=== PATIENT | female | born 1945 | race Caucasian/White ===

== ENCOUNTER 2019-03-27 09:42 | Outpatient (CLI) | payer MEDICARE ==
--- NOTE | 2019-03-27 10:40 | BD ---
EXAM: DEXA bone density examination HISTORY: 74-year-old postmenopausal female for screening COMPARISON: None FINDINGS: L1--bone mineral density 0.921 g/sq cm; T score -0.6 L2--bone mineral density 0.874 g/sq cm; T score -1.4 L3--bone mineral density 0.850 g/sq cm; T score -2.1 L4--bone mineral density 0.932 g/sq cm; T score -1.2 Total L1-L4--bone mineral density 0.890 g/sq cm; T score -1.4 Left femoral neck--bone mineral density0.553; T score -2.7 Total proximal left femur--bone mineral density 0.701; T score -2.0 IMPRESSION: Osteoporosis
== END 2019-03-27 09:43 | disposition home or self-care (01) ==
LOC: BICMAMMO 09:42
PROVIDERS: ATTEND Family Medicine
DX: Z13.820 Encounter for screening for osteoporosis (principal); M81.0 Age-related osteoporosis without current pathological fracture; Z78.0 Asymptomatic menopausal state
CPT/HCPCS: 77080

== ENCOUNTER 2020-05-02 10:29 | Outpatient (CLI) | payer MEDICARE | END 2020-05-02 10:30 | disposition home or self-care (01) | LOC: BICRAD 10:29 | PROVIDERS: ATTEND Internal Medicine Rheumatology | DX: M54.5 Low back pain (principal); M43.16 Spondylolisthesis, lumbar region; M43.17 Spondylolisthesis, lumbosacral region | CPT/HCPCS: 72100 ==

== ENCOUNTER 2020-12-10 15:20 | Outpatient (CLI) | payer MEDICARE ==
[2020-12-10 16:23] LABS: Hemoglobin 12.9 g/dL (12.0-15.5); Mean Corpuscular HGB CONC 32.8 g/dL (32.0-36.0); Mean Corpuscular Hemoglobin 29.9 pg (27.0-33.0); Mean Corpuscular Volume 91.2 fl (81.6-98.3); Mean Platelet Volume 11.3 fl (7.4-10.4); Platelet Count 262 10x3/uL (150-450); RBC Distribution Width 12.9 % (11.5-14.5); Red Blood Cell (RBC) Count 4.31 10x6/uL (3.90-5.03); White Blood Cell (WBC) Count 6.5 10x3/uL (3.5-10.5)
[2020-12-10 16:47] LABS: INR-International Normal Ratio 0.9; PTT 24.8 sec (22.0-33.0); Prothrombin Time 10.2 sec (9.5-12.1)
[2020-12-11 00:51] LABS: SARS-CoV-2 PCR by NAA Not Detected (NotDetected)
== END 2020-12-10 15:21 | disposition home or self-care (01) ==
LOC: LABBT 15:20
PROVIDERS: ATTEND Neurological Surgery
DX: Z01.812 Encounter for preprocedural laboratory examination (principal); M48.061 Spinal stenosis, lumbar region without neurogenic claudication; M43.16 Spondylolisthesis, lumbar region; Z20.822 Contact with and (suspected) exposure to COVID-19
CPT/HCPCS: 85027; 85610; 85730; U0003; U0005

== ENCOUNTER 2020-12-13 05:51 | Inpatient (IN) | payer MEDICARE ==
[2020-12-13] MEDS ORDERED: Alendronate Sodium 70 mg Tablet PO SCH (06:00)
[2020-12-13] MEDS ORDERED: Bupivacaine PF 0.5% 30 ML VIAL ONE (06:10)
[2020-12-13] MEDS ORDERED: Thrombin 5000 UNITS/5 ML VIAL ONE ×2 (06:10→07:26)
[2020-12-13] MEDS ORDERED: EPINEPHrine 1 MG/ML AMP ONE (06:10)
[2020-12-13] MEDS ORDERED: Neomycin-Polymyxin 1 ML AMP ONE ×2 (06:10→12:39)
[2020-12-13] MEDS ORDERED: ceFAZolin 2 GM/DEX 5% 100 ML BAG ONE (06:28)
[2020-12-13] MEDS ORDERED: Albumin 5% 500 ML ONE (06:33)
[2020-12-13] MEDS ORDERED: Fentanyl 250 MCG/5 ML VIAL ONE (06:33)
[2020-12-13] MEDS ORDERED: diphenhydrAMINE 25 MG CAP PO PRN (06:38)
[2020-12-13] MEDS ORDERED: Ondansetron PF 4 MG/2 ML Vial IVP PRN (06:38)
[2020-12-13] MEDS ORDERED: Promethazine HCl 12.5 MG SUPP PR PRN (06:38)
[2020-12-13] MEDS ORDERED: Promethazine 25 MG TAB PO PRN (06:38)
[2020-12-13] MEDS ORDERED: HYDROcodone/Acetaminophen 7.5/325 mg Tablet PO PRN (06:38)
[2020-12-13] MEDS ORDERED: Morphine 2 MG/ML VIAL SLOW IVP PRN (06:38)
[2020-12-13] MEDS ORDERED: Acetaminophen/Codeine 30-300mg Tablet PO PRN (06:38)
[2020-12-13] MEDS ORDERED: Acetaminophen 325 MG TAB PO PRN (06:38)
[2020-12-13] MEDS ORDERED: Milk Of Magnesia 30 ML UDCUP PO PRN (06:38)
[2020-12-13] MEDS ORDERED: Clindamycin/D5W 900 mg/50 ml Premix Bag ONE (06:45)
[2020-12-13] MEDS ORDERED: Levofloxacin 500 mg/D5W 100 ml Premix Bag ONE (06:45)
[2020-12-13] MEDS ORDERED: Ketamine 50 MG/ML (10ML VIAL) ONE (07:15)
[2020-12-13] MEDS ORDERED: Famotidine/PF 20 mg/2ml Vial ONE (07:15)
[2020-12-13] MEDS ORDERED: Rocuronium Bromide 10 MG/ML (10ML VIAL) ONE (07:26)
[2020-12-13] MEDS ORDERED: PROPOFOL 200 MG/20 ML VIAL ONE (07:26)
[2020-12-13] MEDS ORDERED: PHENYLEPHRINE-NS 100 MCG/ML 10 ML SYRINGE ONE ×2 (07:26→13:44)
[2020-12-13] MEDS ORDERED: Dexamethasone 20 MG/5 ML VIAL ONE (07:26)
[2020-12-13] MEDS ORDERED: Ondansetron PF 4 MG/2 ML Vial ONE (07:26)
[2020-12-13] MEDS ORDERED: Lidocaine 1% PF 5 ML VIAL ONE (07:26)
[2020-12-13] MEDS ORDERED: Non-Formulary Item 1 EACH (Folic Acid [Folic Acid] 0.4 MG Tablet) PO SCH (09:00)
[2020-12-13] MEDS ORDERED: ATOMOXETINE HCL 80 MG PO SCH (09:00)
[2020-12-13] MEDS ORDERED: Phenylephrine 10 MG/ML VIAL ONE (11:32)
[2020-12-13] MEDS ORDERED: SUGAMMADEX SODIUM 200 MG/2 ML VIAL ONE (13:04)
[2020-12-13] MEDS ORDERED: Fentanyl 100 MCG/2 ML VIAL ONE (13:55)
[2020-12-13] MEDS ORDERED: PACU-Morphine 4MG/ML VIAL SLOW IVP PRN (13:55)
[2020-12-13] MEDS ORDERED: Promethazine HCl 25 MG/ML VIAL IM PRN (13:55)
[2020-12-13] MEDS ORDERED: Morphine Sulfate 2 MG/ML SYRINGE SLOW IVP PRN (13:55)
[2020-12-13] MEDS ORDERED: Promethazine HCl 25 MG/ML VIAL IVPB PRN (13:55)
[2020-12-13] MEDS ORDERED: HYDROmorphone 2 MG/ML VIAL SLOW IVP PRN (13:55)
[2020-12-13] MEDS ORDERED: Ondansetron HCl/PF 4 MG/2 ML Vial IVP PRN (13:55)
[2020-12-13] MEDS ORDERED: Calcium Chloride 1 GM/10 ML Abboject SYRINGE ONE (14:11)
[2020-12-13] MEDS: clonazePAM 1 MG TAB PO SCH (17:06)
[2020-12-13] MEDS: Folic Acid 1 MG TAB PO SCH (17:06)
[2020-12-13] MEDS: Sodium Chloride 0.9% 1,000 ML IV SCH ×2 (17:06→20:20)
[2020-12-13] MEDS: Clindamycin/D5W 900 MG in Premix Bag 1 BAG IVPB SCH ×2 (17:06→21:58)
[2020-12-13] MEDS: Morphine 4 MG/ML VIAL SLOW IVP PRN (18:35)
[2020-12-13 19:34] VITALS: BMI 27.1
[2020-12-13] MEDS: HYDROcodone/Acetaminophen 10/325 mg Tablet PO PRN (20:21)
[2020-12-13] MEDS: Magnesium Oxide 400 MG TAB PO SCH (20:21)
[2020-12-13] MEDS: tiZANidine HCl 4 MG TAB PO PRN (20:22)
[2020-12-13] MEDS ORDERED: Non-Formulary Item 1 EACH (Magnesium Oxide [Magnesium] 400 MG Capsule) PO SCH (21:00)
[2020-12-14 03:46] LABS: #Lymphocytes 0.9 thou/uL (1.20-3.40); #Neutrophils 11.5 thou/uL (1.40-6.50); %Basophils 0.1 % (0.0-1.0); %Eosinophils 0.2 % (0.0-10.0); %Lymphocytes 6.8 % (21.0-51.0); %Monocytes 7.5 % (0.0-10.0); %Neutrophils 85.4 % (42.0-75.0); Hemoglobin 8.8 g/dL (12.0-16.0); Mean Corpuscular HGB CONC 34.4 g/dL (32.0-36.0); Mean Corpuscular Hemoglobin 32.1 pg (27.0-31.0); Mean Corpuscular Volume 93.2 fL (78.0-98.0); Mean Platelet Volume 8.9 fL (7.4-10.4); Platelet Count 199 thou/uL (130-400); RBC Distribution Width 11.7 % (11.5-14.5); Red Blood Cell (RBC) Count 2.73 mill/uL (4.20-5.40); White Blood Cell (WBC) Count 13.5 thou/uL (4.8-10.8)
[2020-12-14 04:11] LABS: Anion Gap 12 mmol/L (10-20); BUN (Urea Nitrogen) 20 mg/dL (9.8-20.1); Calc. Creatinine Clearance 47 mL/min (70-130); Calcium 8.8 mg/dL (7.8-10.44); Carbon Dioxide 21 mmol/L (23-31); Chloride 103 mmol/L (98-107); Glucose 130 mg/dL (83-110); Potassium 5.2 mmol/L (3.5-5.1); Sodium 131 mmol/L (136-145)
[2020-12-14] MEDS: Sodium Chloride 0.9% 1,000 ML IV SCH ×2 (05:39→13:04)
[2020-12-14] MEDS: Clindamycin/D5W 900 MG in Premix Bag 1 BAG IVPB SCH ×3 (05:40→21:01)
[2020-12-14] MEDS: HYDROcodone/Acetaminophen 10/325 mg Tablet PO PRN ×3 (05:42→21:01)
[2020-12-14] MEDS: tiZANidine HCl 4 MG TAB PO PRN (05:42)
[2020-12-14] MEDS: Folic Acid 1 MG TAB PO SCH (10:04)
[2020-12-14] MEDS: clonazePAM 1 MG TAB PO SCH (12:22)
[2020-12-14] MEDS: Morphine 4 MG/ML VIAL SLOW IVP PRN ×3 (15:10→23:30)
[2020-12-14 16:08] LABS: #Basophils 0.1 thou/uL (0.0-0.2); #Lymphocytes 1.5 thou/uL (1.20-3.40); #Monocytes 0.9 thou/uL (0.11-0.59); #Neutrophils 9.3 thou/uL (1.40-6.50); %Basophils 0.8 % (0.0-1.0); %Eosinophils 0.3 % (0.0-10.0); %Lymphocytes 12.4 % (21.0-51.0); %Monocytes 7.7 % (0.0-10.0); %Neutrophils 78.7 % (42.0-75.0); Hemoglobin 10.2 g/dL (12.0-16.0); Mean Corpuscular Hemoglobin 31.8 pg (27.0-31.0); Mean Corpuscular Volume 93.6 fL (78.0-98.0); Mean Platelet Volume 9.1 fL (7.4-10.4); Platelet Count 167 thou/uL (130-400); RBC Distribution Width 12.6 % (11.5-14.5); Red Blood Cell (RBC) Count 3.19 mill/uL (4.20-5.40); White Blood Cell (WBC) Count 11.8 thou/uL (4.8-10.8)
[2020-12-14] MEDS: Magnesium Oxide 400 MG TAB PO SCH (21:00)
[2020-12-15] MEDS: Clindamycin/D5W 900 MG in Premix Bag 1 BAG IVPB SCH ×3 (05:32→19:40)
[2020-12-15] MEDS: HYDROcodone/Acetaminophen 10/325 mg Tablet PO PRN ×3 (06:11→17:49)
[2020-12-15] MEDS: clonazePAM 1 MG TAB PO SCH (09:14)
[2020-12-15] MEDS: Folic Acid 1 MG TAB PO SCH (09:14)
[2020-12-15] MEDS: Sodium Chloride 0.9% 1,000 ML IV SCH (09:17)
[2020-12-15] MEDS: Magnesium Oxide 400 MG TAB PO SCH (19:40)
[2020-12-15] MEDS: Mag-Al 1200 mg/1200 mg/30 ML UDCUP PO PRN (19:41)
[2020-12-16] MEDS: Mag-Al 1200 mg/1200 mg/30 ML UDCUP PO PRN (00:12)
[2020-12-16] MEDS: Sodium Chloride 0.9% 1,000 ML IV SCH ×2 (00:12→15:36)
[2020-12-16] MEDS: HYDROcodone/Acetaminophen 10/325 mg Tablet PO PRN ×2 (04:02→15:34)
[2020-12-16] MEDS: Morphine 4 MG/ML VIAL SLOW IVP PRN ×2 (05:27→11:09)
[2020-12-16] MEDS: Clindamycin/D5W 900 MG in Premix Bag 1 BAG IVPB SCH ×3 (05:27→20:24)
[2020-12-16] MEDS: clonazePAM 1 MG TAB PO SCH (08:20)
[2020-12-16] MEDS: Folic Acid 1 MG TAB PO SCH (08:20)
[2020-12-16] MEDS: Magnesium Oxide 400 MG TAB PO SCH (20:23)
[2020-12-17] MEDS: HYDROcodone/Acetaminophen 10/325 mg Tablet PO PRN ×3 (03:10→19:32)
[2020-12-17] MEDS: Sodium Chloride 0.9% 1,000 ML IV SCH ×2 (05:44→18:32)
[2020-12-17] MEDS: Clindamycin/D5W 900 MG in Premix Bag 1 BAG IVPB SCH ×2 (05:44→14:47)
[2020-12-17 08:01] VITALS: BP 123/75; TEMP 98.1
[2020-12-17] MEDS: clonazePAM 1 MG TAB PO SCH (08:53)
[2020-12-17] MEDS: Folic Acid 1 MG TAB PO SCH (08:53)
== END 2020-12-17 19:35 | DRG 455 ==
LOC: SDC 05:51 → ONC 16:57
PROVIDERS: ADMIT Neurological Surgery; ATTEND Neurological Surgery
PROC: 0SG10AJ Fusion of 2 or more Lumbar Vertebral Joints with Interbody Fusion Device, Posterior Approach, Anterior Column, Open Approach (ICD-10-PCS; principal; 2020-12-13)
PROC: 0SG1071 Fusion of 2 or more Lumbar Vertebral Joints with Autologous Tissue Substitute, Posterior Approach, Posterior Column, Open Approach (ICD-10-PCS; 2020-12-13)
PROC: 01NB0ZZ Release Lumbar Nerve, Open Approach (ICD-10-PCS; 2020-12-13)
PROC: 00NY0ZZ Release Lumbar Spinal Cord, Open Approach (ICD-10-PCS; 2020-12-13)
PROC: 30233N1 Transfusion of Nonautologous Red Blood Cells into Peripheral Vein, Percutaneous Approach (ICD-10-PCS; 2020-12-14)
DX: M48.062 Spinal stenosis, lumbar region with neurogenic claudication (principal); M43.16 Spondylolisthesis, lumbar region; Z20.822 Contact with and (suspected) exposure to COVID-19; I95.9 Hypotension, unspecified; R00.0 Tachycardia, unspecified; G89.29 Other chronic pain; F32.A Depression, unspecified; Z96.641 Presence of right artificial hip joint; Z96.653 Presence of artificial knee joint, bilateral; Z79.899 Other long term (current) drug therapy; Z51.5 Encounter for palliative care; Z90.49 Acquired absence of other specified parts of digestive tract; Z88.0 Allergy status to penicillin; Z01.812 Encounter for preprocedural laboratory examination
CPT/HCPCS: 36415; 36430; 76000; 80048; 82805; 85025; 85027; 85610; 85730; 86850; 86900; 86901; C1713; C1768; J0171; J1100; J1956; J2270; J2370; J2405; J2704; J3010; J3370; J3490; J7050; P9016; P9045; S0020; S0028; U0003; U0005

== ENCOUNTER 2021-01-08 14:45 | Outpatient (CLI) | payer MEDICARE | END 2021-01-08 14:46 | disposition home or self-care (01) | LOC: RAD 14:45 | PROVIDERS: ATTEND Family Medicine | DX: M43.16 Spondylolisthesis, lumbar region (principal); M47.816 Spondylosis without myelopathy or radiculopathy, lumbar region; Z98.890 Other specified postprocedural states | CPT/HCPCS: 72100 ==

== ENCOUNTER 2021-08-04 16:29 | Outpatient (CLI) | payer MEDICARE, OTHER | END 2021-08-04 16:30 | disposition home or self-care (01) | LOC: SCSRAD 16:29 | PROVIDERS: ATTEND Family Medicine | DX: S69.91XA Unspecified injury of right wrist, hand and finger(s), initial encounter (principal); M15.1 Heberden's nodes (with arthropathy) ==

== ENCOUNTER 2021-10-16 10:04 | Outpatient (CLI) | payer OTHER ==
[2021-10-16 11:46] LABS: #Eosinphils 0.1 10x3/uL (0.0-0.5); #Monocytes 0.7 10x3/uL (0.0-1.1); #Neutrophils 5.5 10x3/uL (1.5-8.4); %Basophils 0.5 % (0.0-2.0); %Lymphocytes 19.9 % (18.0-47.0); %Monocytes 8.6 % (0.0-10.0); %Neutrophils 69.1 % (40.0-75.0); Mean Corpuscular HGB CONC 33.9 g/dL (32.0-36.0); Mean Corpuscular Hemoglobin 30.5 pg (27.0-33.0); Mean Corpuscular Volume 90.1 fl (81.6-98.3); Mean Platelet Volume 11.2 fl (7.4-10.4); Platelet Count 335 10x3/uL (150-450); RBC Distribution Width 13.8 % (11.5-14.5); Red Blood Cell (RBC) Count 4.26 10x6/uL (3.90-5.03)
[2021-10-16 12:05] LABS: Bilirubin Neg (Negative); Blood, Urine Negative (Negative); Clarity Clear (Clear); Glucose, Urine (Dipstick) Normal (Negative); Ketone, Urine Negative (Negative); Leukocyte 25 (Negative); Nitrite Negative (Negative); Protein, Urine (Dipstick) Negative (Neg-Trace); Urobilinogen Normal mg/dL (Less than 2)
== END 2021-10-16 10:05 | disposition home or self-care (01) ==
LOC: LABBT 10:04
PROVIDERS: ATTEND Orthopaedic Surgery Hand Surgery
DX: Z01.818 Encounter for other preprocedural examination (principal); Z20.822 Contact with and (suspected) exposure to COVID-19
CPT/HCPCS: 81003; 85025; 87811; 93005; 93010

== ENCOUNTER 2021-10-21 05:43 | Day surgery (SDC) | payer OTHER ==
[2021-10-17 13:10] VITALS: BMI 30.1
[2021-10-21] MEDS ORDERED: Neomycin-Polymyxin 1 ML AMP ONE (08:14)
[2021-10-21] MEDS ORDERED: Bupivacaine PF 0.5% 30 ML VIAL ONE (08:14)
[2021-10-21] MEDS ORDERED: Betamet Acet/Betamet Na Ph 30 MG/5 ML VIAL ONE (08:14)
[2021-10-21] MEDS ORDERED: Bacitracin Zinc Ointment 30 gm TUBE ONE (08:14)
[2021-10-21] MEDS ORDERED: fentaNYL Citrate/PF 100 MCG/2 ML SYRINGE ONE (08:25)
[2021-10-21] MEDS ORDERED: CEFAZOLIN 2 GM VIAL ONE (08:37)
[2021-10-21] MEDS ORDERED: Sodium Chloride 0.9% 100 ML ONE (08:37)
[2021-10-21] MEDS ORDERED: Levofloxacin 500 mg/D5W 100 ml Premix Bag ONE (08:43)
[2021-10-21] MEDS ORDERED: Clindamycin/D5W 900 mg/50 ml Premix Bag ONE (08:43)
[2021-10-21] MEDS ORDERED: Phenylephrine 10 MG/ML VIAL ONE (08:52)
[2021-10-21] MEDS ORDERED: PROPOFOL 200 MG/20 ML VIAL ONE (08:52)
[2021-10-21] MEDS ORDERED: Ondansetron PF 4 MG/2 ML Vial ONE (08:52)
[2021-10-21] MEDS ORDERED: ePHEDrine 50 MG/ML VIAL ONE (08:52)
[2021-10-21] MEDS ORDERED: Lidocaine 1% PF 5 ML VIAL ONE (08:52)
[2021-10-21] MEDS ORDERED: Dexamethasone 20 MG/5 ML VIAL ONE (08:52)
== END 2021-10-21 14:00 | disposition home or self-care (01) ==
LOC: SDC 05:43
PROVIDERS: ATTEND Orthopaedic Surgery Hand Surgery
PROC: 0RGW04Z Fusion of Right Finger Phalangeal Joint with Internal Fixation Device, Open Approach (ICD-10-PCS; principal; 2021-10-21)
PROC: 0RRW0JZ Replacement of Right Finger Phalangeal Joint with Synthetic Substitute, Open Approach (ICD-10-PCS; 2021-10-21)
DX: M15.2 Bouchard's nodes (with arthropathy) (principal); M15.1 Heberden's nodes (with arthropathy); S63.232A Subluxation of proximal interphalangeal joint of right middle finger, initial encounter; G89.29 Other chronic pain; Z79.83 Long term (current) use of bisphosphonates; Z79.899 Other long term (current) drug therapy; Z88.0 Allergy status to penicillin; Z88.6 Allergy status to analgesic agent; Z96.611 Presence of right artificial shoulder joint; Z96.653 Presence of artificial knee joint, bilateral; W19.XXXA Unspecified fall, initial encounter
CPT/HCPCS: 26536; 26860; 73140; 76000; C1776; C1894; J0690; J0702; J1100; J1956; J2370; J2405; J2704; J3490; S0020

== ENCOUNTER 2022-04-24 18:36 | Emergency (ER) | payer MEDICARE, OTHER ==
[2022-04-24 19:45] LABS: #Basophils 0.1 thou/uL (0.0-0.2); #Eosinphils 0.1 thou/uL (0.0-0.7); #Lymphocytes 2.3 thou/uL (1.20-3.40); #Monocytes 0.9 thou/uL (0.11-0.59); %Basophils 0.7 % (0.0-1.0); %Lymphocytes 24.4 % (21.0-51.0); %Monocytes 9.9 % (0.0-10.0); Hemoglobin 14.3 g/dL (12.0-16.0); Mean Corpuscular HGB CONC 33.7 g/dL (32.0-36.0); Mean Corpuscular Hemoglobin 31.9 pg (27.0-31.0); Mean Corpuscular Volume 94.7 fl (78.0-98.0); Mean Platelet Volume 8.9 fL (7.4-10.4); Platelet Count 274 10x3/uL (130-400); RBC Distribution Width 12.3 % (11.5-14.5); Red Blood Cell (RBC) Count 4.48 mill/uL (4.20-5.40); White Blood Cell (WBC) Count 9.3 10x3/uL (4.8-10.8)
[2022-04-24 20:05] LABS: ALT (SGPT) 26 U/L (8-55); AST (SGOT) 23 U/L (5-34); Albumin 4.4 g/dL (3.4-4.8); Alkaline Phosphatase 83 U/L (40-110); Anion Gap 11 mmol/L (10-20); BUN (Urea Nitrogen) 21 mg/dL (9.8-20.1); Bilirubin, Total 0.7 mg/dL (0.2-1.2); Calc. Creatinine Clearance 0 mL/min (70-130); Calcium 9.6 mg/dL (7.8-10.44); Carbon Dioxide 28 mmol/L (23-31); Chloride 100 mmol/L (98-107); Estimated GFR 34; Globulin 3.2 g/dL (2.4-3.5); Glucose 95 mg/dL (83-110); Potassium 4.3 mmol/L (3.5-5.1); Protein, Total 7.6 g/dL (5.8-8.1); Sodium 135 mmol/L (136-145)
[2022-04-24] MEDS ORDERED: Furosemide 40 MG TAB ONE (21:10)
== END 2022-04-24 22:01 | disposition home or self-care (01) ==
LOC: ERS 18:36
DX: B35.3 Tinea pedis (principal); R60.9 Edema, unspecified; M79.7 Fibromyalgia; G47.00 Insomnia, unspecified; M19.90 Unspecified osteoarthritis, unspecified site
CPT/HCPCS: 36415; 71045; 80053; 83880; 84484; 85025; 93005; 96372

== ENCOUNTER 2022-07-03 13:02 | Emergency (ER) | payer MEDICARE, OTHER ==
[2022-07-03 14:12] LABS: #Eosinphils 0.1 thou/uL (0.0-0.7); #Lymphocytes 1.1 thou/uL (1.20-3.40); #Monocytes 0.6 thou/uL (0.11-0.59); #Neutrophils 3.9 thou/uL (1.40-6.50); %Basophils 0.8 % (0.0-1.0); %Lymphocytes 19.5 % (21.0-51.0); %Monocytes 10.7 % (0.0-10.0); Hemoglobin 13.5 g/dL (12.0-16.0); Mean Corpuscular HGB CONC 35.3 g/dL (32.0-36.0); Mean Corpuscular Hemoglobin 32.1 pg (27.0-31.0); Mean Corpuscular Volume 90.7 fl (78.0-98.0); Mean Platelet Volume 8.7 fL (7.4-10.4); Platelet Count 229 10x3/uL (130-400); RBC Distribution Width 12.3 % (11.5-14.5); White Blood Cell (WBC) Count 5.8 10x3/uL (4.8-10.8)
[2022-07-03 14:31] LABS: ALT (SGPT) 31 U/L (8-55); AST (SGOT) 28 U/L (5-34); Alkaline Phosphatase 69 U/L (40-110); Anion Gap 13 mmol/L (10-20); BUN (Urea Nitrogen) 21 mg/dL (9.8-20.1); Calc. Creatinine Clearance 0 mL/min (70-130); Calcium 8.8 mg/dL (7.8-10.44); Carbon Dioxide 25 mmol/L (23-31); Chloride 88 mmol/L (98-107); Estimated GFR 40; Globulin 2.8 g/dL (2.4-3.5); Glucose 96 mg/dL (83-110); Potassium 3.3 mmol/L (3.5-5.1); Protein, Total 6.8 g/dL (5.8-8.1); Sodium 123 mmol/L (136-145)
[2022-07-03] MEDS ORDERED: Potassium Chloride 20 MEQ TAB ONE (15:44)
== END 2022-07-03 15:53 | disposition home or self-care (01) ==
LOC: ERS 13:02
DX: R60.0 Localized edema (principal); E87.6 Hypokalemia; N18.9 Chronic kidney disease, unspecified
CPT/HCPCS: 36415; 80053; 83880; 84484; 85025; 93005; 93970

== ENCOUNTER 2023-03-19 05:38 | Day surgery (SDC) | payer MEDICARE ==
[2023-03-18 17:06] VITALS: BMI 35.2
[2023-03-19] MEDS ORDERED: Lidocaine 1% PF 5 ML VIAL ONE (06:16)
[2023-03-19] MEDS ORDERED: fentaNYL 50 mcg/mL 1 mL Vial ONE (06:17)
[2023-03-19] MEDS ORDERED: PROPOFOL 20 ML ONE ×2 (06:17→07:45)
[2023-03-19] MEDS ORDERED: Ondansetron PF 4 MG/2 ML Vial ONE (06:17)
[2023-03-19 06:28] LABS: #Eosinphils 0.1 thou/uL (0.0-0.7); #Monocytes 0.7 thou/uL (0.11-0.59); #Neutrophils 4.8 thou/uL (1.40-6.50); %Basophils 0.3 % (0.0-1.0); %Eosinophils 1.4 % (0.0-10.0); %Lymphocytes 20.2 % (21.0-51.0); %Neutrophils 67.3 % (42.0-75.0); Hematocrit 37.3 % (36.0-47.0); Hemoglobin 12.7 g/dL (12.0-16.0); Mean Corpuscular Hemoglobin 30.8 pg (27.0-31.0); Mean Corpuscular Volume 90.3 fl (78.0-98.0); Mean Platelet Volume 11.3 fL (7.4-10.4); Platelet Count 255 10x3/uL (130-400); RBC Distribution Width 14.4 % (11.5-14.5); Red Blood Cell (RBC) Count 4.13 mill/uL (4.20-5.40); White Blood Cell (WBC) Count 7.2 10x3/uL (4.8-10.8)
[2023-03-19] MEDS ORDERED: Bacitracin Zinc Ointment 30 gm TUBE ONE (06:38)
[2023-03-19] MEDS ORDERED: Bupivacaine PF 0.5% 30 ML VIAL ONE (06:38)
[2023-03-19] MEDS ORDERED: LevoFLOXacin D5W 500 mg (100 mL) BAG ONE (07:09)
[2023-03-19] MEDS ORDERED: Clindamycin/D5W 900 mg/50 ml Premix Bag ONE (07:09)
[2023-03-19] MEDS ORDERED: Midazolam HCl 2 mg/2 ml Vial ONE (07:26)
== END 2023-03-19 09:02 | disposition home or self-care (01) ==
LOC: SDC 05:38
PROVIDERS: ATTEND Orthopaedic Surgery Hand Surgery
PROC: 0PC00ZZ Extirpation of Matter from Sternum, Open Approach (ICD-10-PCS; principal; 2023-03-19)
DX: T84.84XA Pain due to internal orthopedic prosthetic devices, implants and grafts, initial encounter (principal); S63.23 Subluxation of proximal interphalangeal joint of finger; M19.041 Primary osteoarthritis, right hand; S52.502A Unspecified fracture of the lower end of left radius, initial encounter for closed fracture; F32.A Depression, unspecified; Z90.49 Acquired absence of other specified parts of digestive tract; Z96.611 Presence of right artificial shoulder joint; Z96.653 Presence of artificial knee joint, bilateral; Z98.1 Arthrodesis status; Z98.890 Other specified postprocedural states; Z88.0 Allergy status to penicillin; Z79.899 Other long term (current) drug therapy; X58.XXXA Exposure to other specified factors, initial encounter
CPT/HCPCS: 20680; 73140; 85025; 93005; J3010; 93010; J1956; J2250; J2405; J2704; J3490; S0020

== ENCOUNTER 2023-07-13 12:20 | Outpatient (CLI) | payer OTHER ==
[2023-07-13 14:32] LABS: #Basophils 0.02 10x3/uL (0.0-0.2); #Eosinphils 0.05 10x3/uL (0.0-0.5); #Monocytes 0.65 10x3/uL (0.0-1.1); #Neutrophils 6.27 10x3/uL (1.5-8.4); %Basophils 0.2 % (0.0-2.0); %Eosinophils 0.6 % (0.0-6.0); %Lymphocytes 16.5 % (18.0-47.0); %Monocytes 7.7 % (0.0-10.0); %Neutrophils 74.6 % (40.0-75.0); Hematocrit 36.4 % (34.9-44.5); Hemoglobin 12.4 g/dL (12.0-15.5); Mean Corpuscular HGB CONC 34.1 g/dL (32.0-36.0); Mean Corpuscular Hemoglobin 30.6 pg (27.0-33.0); Mean Corpuscular Volume 89.9 fl (81.6-98.3); Mean Platelet Volume 11.6 fl (7.4-10.4); Platelet Count 295 10x3/uL (150-450); Red Blood Cell (RBC) Count 4.05 10x6/uL (3.90-5.03); White Blood Cell (WBC) Count 8.4 10x3/uL (3.5-10.5)
[2023-07-13 15:00] LABS: Anion Gap 16 mmol/L (10-20); BUN (Urea Nitrogen) 23 mg/dL (9.8-20.1); Calc. Creatinine Clearance 0 mL/min (70-130); Calcium 10.1 mg/dL (7.8-10.44); Carbon Dioxide 23 mmol/L (23-31); Chloride 101 mmol/L (98-107); Estimated GFR 41; Glucose 99 mg/dL (83-110); Potassium 4.5 mmol/L (3.5-5.1); Sodium 135 mmol/L (136-145)
== END 2023-07-13 12:21 | disposition home or self-care (01) ==
LOC: LABBT 12:20
PROVIDERS: ATTEND Orthopaedic Surgery
DX: Z01.818 Encounter for other preprocedural examination (principal); M12.812 Other specific arthropathies, not elsewhere classified, left shoulder
CPT/HCPCS: 80048; 85025; 93005; 93010